=== PATIENT | female | born 1985 | race American Indian/Alaskan Native ===

== ENCOUNTER 2020-04-22 01:11 | Observation (INO) | payer OTHER, SELFPAY ==
[2020-04-22] MEDS ORDERED: LORazepam 2 MG/ML VIAL IV ONE (01:30)
--- NOTE | 2020-04-22 01:40 | Emergency Department Report ---
ED Neuro Deficit HPI - General Chief Complaint: Neuro Symptoms/Deficit Stated Complaint: SHORT OF BREATH, SICKLE CELL CRISIS Time Seen by Provider: 04/22/20 01:24 Source: patient Mode of arrival: Ambulatory Limitations: Physical Limitation - History of Present Illness Initial Comments: [facility] Tele[facility]urology Consult Services Date of Service: 04/22/2020 01:17:13 Impression: Rule Out Acute Ischemic Stroke Comments/Sign-Out: 34 year old female who presents to the hospital because of right side weakness and numbness. Given history of quiñones quiñones and sickle cell crisis and history of recent COVID positive test patient is at risk of new stroke. Mechanism of Stroke: Not Clear Metrics: Last Known Well: 04/22/2020 00:30:00 [employer] Notification Time: 04/22/2020 01:16:56 Arrival Time: 04/22/2020 01:11:00 Stamp Time: 04/22/2020 01:17:13 Time First Login Attempt: 04/22/2020 01:22:23 Video Start Time: 04/22/2020 01:25:03 Symptoms: Right arm weakness and numbness NIHSS Start Assessment Time: 04/22/2020 01:35:00 Patient is not a candidate for Alteplase/Activase. Patient was not deemed candidate for Alteplase/Activase thrombolytics because of Coagulopathy. Video End Time: 04/22/2020 01:40:00 CT head showed no acute hemorrhage or acute core infarct. Clinical Presentation is not Suggestive of Large Vessel Occlusive Disease ED Physician notified of diagnostic impression and management plan on 04/22/2020 01:42:00 Our recommendations are outlined below. Recommendations: Activate Stroke Protocol Admission/Order Set Stroke/Telemetry Floor Neuro Checks Bedside Swallow Eval DVT Prophylaxis IV Fluids, Normal Saline Head of Bed 30 Degrees Euglycemia and Avoid Hyperthermia (PRN Acetaminophen) Antiplatelet Therapy Recommended Routine Consultation with Inhouse Neurology for Follow up Care Sign Out: Discussed with Emergency Department Provider History of Present Illness: Patient is a 34 year old Female. Patient was brought by private transportation with symptoms of Right arm weakness and numbness 34 year old female with a history of quiñones quiñones and sickle cell disease who presents with shortness of breath and right side weakness and numbness. Patient recently tested positive for COVID-19 and today was feeling short of breath and felt she was having a sickling crisis. When she decided to come to the ED she noticed weakness and numbness in her right arm. Patient reports she takes Coumadin, Aspirin, and Plavix and reports her INR was 2.9 yesterday. Anticoagulant use: Coumadin Antiplatelet use: Aspirin and Plavix Examination: BP(115/79), Pulse(82), Blood Glucose(92) 1A: Level of Consciousness - Alert; keenly responsive + 0 1B: Ask Month and Age - Both Questions Right + 0 1C: Blink Eyes & Squeeze Hands - Performs Both Tasks + 0 2: Test Horizontal Extraocular Movements - Normal + 0 3: Test Visual Jansen - No Visual Loss + 0 4: Test Facial Palsy (Use Grimace if Obtunded) - Normal symmetry + 0 5A: Test Left Arm Motor Drift - No Drift for 10 Seconds + 0 5B: Test Right Arm Motor Drift - Drift, but doesn't hit bed + 1 6A: Test Left Leg Motor Drift - No Drift for 5 Seconds + 0 6B: Test Right Leg Motor Drift - No Drift for 5 Seconds + 0 7: Test Limb Ataxia (FNF/Heel-Arthur) - No Ataxia + 0 8: Test Sensation - Complete Loss: Cannot Sense Being Touched At All + 2 9: Test Language/Aphasia - Normal; No aphasia + 0 10: Test Dysarthria - Normal + 0 11: Test Extinction/Inattention - No abnormality + 0 NIHSS Score: 3 Patient/Family was informed the Neurology Consult would happen via TeleHealth consult by way of interactive audio and video telecommunications and consented to receiving care in this manner. Due to the immediate potential for life-threatening deterioration due to underlying acute neurologic illness, I spent 20 minutes providing critical care. This time includes time for face to face visit via telemedicine, review of medical records, imaging studies and discussion of findings with providers, the patient and/or family. Dr Lubna Garibay [facility] Case [id number] - Related Data Allergies/Adverse Reactions: Allergies Allergy/AdvReac Type Severity Reaction Status Date / Time iodine Allergy Anaphylaxis Verified 04/22/20 01:14 ED Review of Systems ROS: Stated complaint: SHORT OF BREATH, SICKLE CELL CRISIS Other details as noted in HPI ED Neuro Physical Exam - General Limitations: Physical Limitation Suspected Stroke: Yes - NIHSS Assessment Interval: Baseline 1a. Level of Consciousness: alert/keenly responsive 1b. LOC Questions: answers both correctly 1c. LOC Commands: performs tasks correctly 2. Best Gaze: normal 3. Visual: no visual loss 4. Facial Palsy: normal symmetrical movement 5b. Motor Arm Right: drift 5a. Motor Arm Left: no drift 6a. Motor Leg Left: no drift 6b. Motor Leg Right: no drift 7. Limb Ataxia: absent 8. Sensory: severe/total sensory loss 9. Best Language: no aphasia 10. Dysarthria: normal 11. Extinction/Inattention: no abnormality Total Score: 3 Stroke Severity: Minor Stroke ED Course Vital Signs 04/22/20 04/22/20 01:17 02:26 Temperature 100.3 F H 100.2 F H Pulse Rate 82 84 Respiratory 18 18 Rate Blood Pressure 115/79 118/71 O2 Sat by Pulse 96 91 Oximetry - Lab Data Result diagrams: 04/22/20 Unknown 04/22/20 Unknown Lab Results 04/22/20 04/22/20 04/22/20 Range/Units Unknown Unknown Unknown WBC 2.9 L (4.5-11.0) K/mm3 RBC 2.45 L (3.65-5.03) M/mm3 Hgb 8.3 L (10.1-14.3) gm/dl Hct 24.6 L (30.3-42.9) % MCV 100 H (79-97) fl MCH 34 H (28-32) pg MCHC 34 (30-34) % RDW 19.6 H (13.2-15.2) % Plt Count 169 (140-440) K/mm3 [place] % (Auto) Plant Cytologist Percent Retic 1.26 (0.78-2.58) % PT 15.8 H (12.2-14.9) Sec. INR 1.24 H (0.87-1.13) APTT 35.1 (24.2-36.6) Sec. Thrombin Time 18.2 (15.1-19.6) Sec. D-Dimer 310.45 H (0-234) ng/mlDDU Glucose (65-100) mg/dL Lactate Dehydrogenase (91-180) units/L C-Reactive Protein (0.00-1.30) mg/dL NT-Pro-B Natriuret Pep 543.9 H (0-450) pg/mL 10/26/20 Range/Units Unknown WBC (4.5-11.0) K/mm3 RBC (3.65-5.03) M/mm3 Hgb (10.1-14.3) gm/dl Hct (30.3-42.9) % MCV (79-97) fl MCH (28-32) pg MCHC (30-34) % RDW (13.2-15.2) % Plt Count (140-440) K/mm3 [place] % (Auto) Percent Retic (0.78-2.58) % PT (12.2-14.9) Sec. INR (0.87-1.13) APTT (24.2-36.6) Sec. Thrombin Time (15.1-19.6) Sec. D-Dimer (0-234) ng/mlDDU Glucose 92 (65-100) mg/dL Lactate Dehydrogenase 309 H (91-180) units/L C-Reactive Protein 2.10 H (0.00-1.30) mg/dL NT-Pro-B Natriuret Pep (0-450) pg/mL Critical care attestation.: If time is entered above; I have spent that time in minutes in the direct care of this critically ill patient, excluding procedure time. ED Disposition Clinical Impression: Weakness Disposition: DC OP ADMIT IP TO THIS HOSP Is pt being admited?: Yes Condition: Stable
--- NOTE | 2020-04-22 01:55 | Cat Scan Report ---
CT HEAD WITHOUT CONTRAST INDICATION / CLINICAL INFORMATION: neuro deficits <6hrs or sx present upon awakening. 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 TECHNIQUE: All CT scans at this location are performed using CT dose reduction for ALARA by means of automated exposure control. COMPARISON: None available. FINDINGS: HEMORRHAGE: None. EXTRA-AXIAL SPACES: Normal in size and morphology for the patient's age. VENTRICULAR SYSTEM: Normal in size and morphology for the patient's age. CEREBRAL PARENCHYMA: No significant abnormality. No acute territorial infarct. MIDLINE SHIFT OR HERNIATION: None. CEREBELLUM / BRAINSTEM: No significant abnormality. ORBITS: Normal as visualized. SOFT TISSUES of HEAD: No significant abnormality. CALVARIUM: No significant abnormality. PARANASAL SINUSES / MASTOID AIR CELLS: Normal as visualized. ADDITIONAL FINDINGS: None. IMPRESSION: 1. No acute intracranial abnormality. CODE STROKE: Time of Communication (METAL FITTER/CDT): 12:50 AM Licensed Practitioner Receiving Report: Dr. Lucas in the ED Signer Name: Nataliia Orozco MD Signed: 04/22/2020 1:50 AM Workstation Name: [id number]
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
[2020-04-22] MEDS ORDERED: HYDROmorphone 1 MG/1 ML INJ IV ONE (02:00)
[2020-04-22 02:29] LABS: Hematocrit 24.6 % (30.3-42.9); Hemoglobin 8.3 gm/dl (10.1-14.3); Mean Corpuscular HGB Conc 34 % (30-34); Mean Corpuscular Volume 100 fl (79-97); Platelet Count 169 K/mm3 (140-440); Red Blood Count 2.45 M/mm3 (3.65-5.03); Red Cell Distribution Width 19.6 % (13.2-15.2)
[2020-04-22 02:40] LABS: INR 1.24 (0.87-1.13)
--- NOTE | 2020-04-22 02:40 | XRay Report ---
CHEST 1 VIEW 04/22/2020 2:08 AM INDICATION / CLINICAL INFORMATION: chest pain, sob. Right-sided weakness. Cell disease. Covid positiv e. COMPARISON: None available. FINDINGS: SUPPORT DEVICES: Right Port-A-Cath tip projecting over the superior vena cava. HEART / MEDIASTINUM: No significant abnormality. LUNGS / PLEURA: Low lung volumes with mild bibasilar atelectasis. No pneumothorax. ADDITIONAL FINDINGS: No significant additional findings. IMPRESSION: 1. Low lung volumes with mild bibasilar atelectasis. Signer Name: Nataliia Orozco MD Signed: 04/22/2020 2:36 AM Workstation Name: [id number]
[2020-04-22 02:41] LABS: Partial Thromboplastin Time 35.1 Sec. (24.2-36.6)
[2020-04-22 02:42] LABS: Thrombin Time 18.2 Sec. (15.1-19.6)
[2020-04-22 02:45] LABS: C-Reactive Protein 2.1 mg/dL (0.00-1.30)
[2020-04-22 02:47] LABS: Blood Urea Nitrogen 8 mg/dL (7-17); Calcium 8.3 mg/dL (8.4-10.2); Hemolysis Index 2
[2020-04-22 02:50] LABS: BUN/Creatinine Ratio 20
[2020-04-22] MEDS ORDERED: ACETAMINOPHEN 500 MG TAB PO ONE (03:09)
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
[2020-04-22] MEDS ORDERED: SODIUM CHLORIDE 0.9% 1000 ML 1,000 ML IV SCH (04:15)
[2020-04-22 05:00] LABS: Anisocytosis 1+; Basophils % (Manual) 0 % (0.0-1.8); Eosinophils % (Manual) 0 % (0.0-4.3); Hypochromasia 1+; Monocytes % (Manual) 0 % (0.0-7.3); Platelet Estimate Consistent w Auto; Target Cells Few; Total Cells Counted 100
[2020-04-22 05:29] LABS: Alanine Aminotransferase 201 units/L (7-56); Albumin 3.3 g/dL (3.9-5); BUN/Creatinine Ratio 20; Blood Urea Nitrogen 8 mg/dL (7-17); Chol/HDL Ratio 1.68 %; HDL Cholesterol 48 mg/dL (40-59); Hemolysis Index 1; LDL Cholesterol,Direct 14 mg/dL (50-130)
[2020-04-22] MEDS ORDERED: MAGNESIUM HYDROXIDE (MOM) ORAL LIQD UDC PO PRN (09:16)
[2020-04-22] MEDS ORDERED: ONDANSETRON 4 MG/2 ML INJ IV PRN (09:16)
[2020-04-22] MEDS ORDERED: diphenhydrAMINE 50 MG CAP PO PRN ×2 (09:23→10:00)
[2020-04-22] MEDS ORDERED: diphenhydrAMINE 25 MG CAP PO PRN (09:27)
[2020-04-22] MEDS: HYDROmorphone 2 MG/1 ML INJ IV PRN ×7 (09:30→21:39)
[2020-04-22] MEDS ORDERED: IBUPROFEN 400 MG TAB PO PRN (09:39)
[2020-04-22] MEDS: ASPIRIN 325 MG TAB PO SCH (09:57)
[2020-04-22] MEDS: FERROUS SULFATE 325 MG TAB PO SCH (09:57)
[2020-04-22] MEDS: CLOPIDOGREL 75 MG TAB PO SCH (09:57)
[2020-04-22] MEDS: MULTIVITAMINS ,THERAPEUTIC TAB PO SCH (09:57)
[2020-04-22] MEDS: ASCORBIC ACID 500 MG TAB PO SCH ×2 (09:57→21:39)
[2020-04-22] MEDS: FOLIC ACID 1 MG TAB PO SCH (09:57)
[2020-04-22] MEDS ORDERED: AZITHROMYCIN 500 MG in SODIUM CHLORIDE 0.9% 250ML 250 ML IV SCH (10:00)
[2020-04-22] MEDS ORDERED: POTASSIUM CHLORIDE ER 20 MEQ TAB PO SCH (10:00)
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
--- NOTE | 2020-04-22 12:33 | Vascular Lab Report ---
DUPLEX DOPPLER LOWER EXTREMITY VEINS, BILATERAL INDICATION / CLINICAL INFORMATION: Bilateral lower extremity pain. TECHNIQUE: Duplex doppler imaging was performed through the veins of both lower extremities using venous lauri robert and other maneuvers. COMPARISON: None available. FINDINGS: RIGHT COMMON FEMORAL VEIN: Negative. RIGHT FEMORAL VEIN: Negative. RIGHT POPLITEAL VEIN: Negative. RIGHT CALF VEINS: Negative. LEFT COMMON FEMORAL VEIN: Negative. LEFT FEMORAL VEIN: Negative. LEFT POPLITEAL VEIN: Negative. LEFT CALF VEINS: Negative. ADDITIONAL FINDINGS: None. IMPRESSION: 1. No sonographic evidence for DVT in either lower extremity. Signer Name: Ga Monzon MD Signed: 04/22/2020 12:28 PM Workstation Name: [id number]
[2020-04-22] MEDS: dexAMETHasone 4 MG/ML VIAL IV SCH ×2 (12:54→21:39)
[2020-04-22] MEDS ORDERED: SODIUM CHLORIDE 0.9% 50 ML IVPB IV SCH (13:00)
[2020-04-22] MEDS ORDERED: REMDESIVIR 100 MG VIAL IV ONE (14:00)
[2020-04-22] MEDS ORDERED: HEPARIN 5,000 UNIT/1 ML VIAL SUB-Q SCH (14:00)
[2020-04-22] MEDS ORDERED: REMDESIVIR 200 MG in SODIUM CHLORIDE 0.9% 250ML 250 ML IV ONE (14:00)
--- NOTE | 2020-04-22 16:22 | Event Note ---
This is a 34-year-old female with sickle cell disease, CHF, morbid obesity, CHF CAD s/p 6 stents, lymphoma and moyamoya who presented to the ED on 04/22 with a complaint of sickle cell crisis and right-sided numbness. Patient tested positive for COVID-19 2 days prior to admission. Patient states that on 04/21 she began having chest pain and bilateral hip pain which is consistent with her usual sickle cell crisis and approximately 30 minutes prior to arrival patient began to have numbness and tingling in her right arm and leg. Patient reported to have diarrhea, loss of smell and taste prior to admission. Upon arrival to the ED she was febrile 100.3, leukopenic at 2.9, D-dimer 310, hypokalemic at 2.5, hyponatremia 133, slightly acidotic at CO2 32 and elevated AST and ALT at 163/201. Upon arrival her BNP was 537, CRP 2.[address] head was unremarkable. Infectious disease and pulmonology were consulted. On 04/22 she was initiated on Decadron twice daily till 05/01 and remdesivir (04/22 through 04/26). Today she was febrile and was given as needed Motrin given her elevated LFTs. Patient was started on 50 mg Benadryl p.o. per her request and started on 2 mg IV Dilaudid as needed every 2 hours per protocol for 24 hours. At the time of my exam patient is on Ventimask at 30% related to continued shortness of breath placed by RT. Pulmonology consult still pending. We will trend her BMP and treat as appropriate. On 04/22 given her elevated D-dimer bilateral lower extremity Doppler ultrasounds were obtained which were negative for any acute DVT or SVT. Also PT and OT were consulted.
[2020-04-22] MEDS ORDERED: SENNOSIDES 8.6 MG TAB PO SCH (22:00)
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
[2020-04-22] MEDS: HEPARIN 5,000 UNIT/1 ML VIAL SUB-Q SCH (22:59)
[2020-04-23] MEDS ORDERED: CLOPIDOGREL 75 MG TAB ONE (00:02)
[2020-04-23] MEDS ORDERED: DEXAMETHASONE 4 MG TAB ONE (00:02)
[2020-04-23] MEDS ORDERED: ASPIRIN 325 MG TAB ONE (00:02)
[2020-04-23] MEDS ORDERED: FERROUS SULFATE 325 MG TAB PO ONE (00:02)
[2020-04-23] MEDS ORDERED: MULTIVITAMINS ,THERAPEUTIC TAB PO ONE (00:02)
[2020-04-23] MEDS ORDERED: FOLIC ACID 1 MG TAB ONE (00:02)
[2020-04-23] MEDS ORDERED: HYDROmorphone 2 MG/1 ML INJ ONE ×8 (00:02→18:30)
[2020-04-23] MEDS ORDERED: ASCORBIC ACID 500 MG TAB ONE (00:02)
[2020-04-23] MEDS ORDERED: HYDROmorphone 1 MG/1 ML INJ ONE (02:30)
[2020-04-23] MEDS ORDERED: HEPARIN 5,000 UNIT/1 ML VIAL ONE (05:30)
[2020-04-23] MEDS: HEPARIN 5,000 UNIT/1 ML VIAL SUB-Q SCH ×2 (06:00→14:43)
[2020-04-23] MEDS ORDERED: DEXAMETHASONE 4 MG TAB PO SCH (10:00)
[2020-04-23] MEDS: FOLIC ACID 1 MG TAB PO SCH (10:00)
[2020-04-23] MEDS: FERROUS SULFATE 325 MG TAB PO SCH (10:00)
[2020-04-23] MEDS: ASPIRIN 325 MG TAB PO SCH (10:43)
[2020-04-23] MEDS: CLOPIDOGREL 75 MG TAB PO SCH (10:45)
[2020-04-23] MEDS: MULTIVITAMINS ,THERAPEUTIC TAB PO SCH (10:46)
[2020-04-23] MEDS: ASCORBIC ACID 500 MG TAB PO SCH (10:46)
--- NOTE | 2020-04-23 18:17 | Progress Note ---
Assessment and Plan - Patient Problems (1) Severe sepsis Current Visit: Yes Status: Acute Plan to address problem: - Presented with fever, tachycardia, leukopenia, hypotension with COVID 19 PNA - 04/22 CXR with bibasilar atelectasis - 04/22 COVID 19 PCR (+) - 04/22 BDx2 pending - 04/22 CRP normal, IV abx DC - ID following (2) Pneumonia due to COVID-19 virus Current Visit: Yes Status: Acute Plan to address problem: - 04/22 CXR with bibasiliar atelectatsis - 04/22 COVID 19 PCR (+) - Pulmonary hygiene - 04/22-04/27 remdesivir - 04/22 abx DC per ID - Pulm consulted - ID consulted - Prone to sleep - OOB TID and PRN - Supplemental oxygenation as needed - Pre/Post ambulation spo2 - 04/22 Dexamethasone BID till 04/29 - Trend COVID markers, LFT, CBC - SARS-Chio 2 IgG pending for possible convalescent plasma - Anticougulation per protocol (3) Acute respiratory failure with hypoxia Current Visit: Yes Status: Acute Plan to address problem: - Supplemental oxygenation as needed - Pulmonary hygiene - Pulmonary consult (4) Sickle cell crisis Current Visit: Yes Status: Acute Plan to address problem: - Presented with lower back, leg and chest pain with arm numbness - IVF ordered for hydration but DC per pulm in setting of COVID with worsening hypoxia - IV anageliscs - Restarted home analgesic once obtained if appropriate - IV Dilaudid per [facility]SC protocol - Trend CBC, retic, LDH (5) Transaminitis Current Visit: Yes Status: Acute Plan to address problem: - Likely secondary to COVID - Trend LFTS - hold statin (6) Leukopenia Current Visit: Yes Status: Acute Qualifiers: Neutropenia type: due to infection Plan to address problem: - Admit WBC 2.9 - Trend CBC (7) Elevated d-dimer Current Visit: Yes Status: Acute Plan to address problem: - 2/2 COVID - 04/22 BLE venous dopplers (-) for DVT (8) Sickle cell anemia Current Visit: Yes Status: Chronic Qualifiers: Sickle-cell associated disorders: with crisis with other complication Qualified Code(s): D57.09 - Hb-SS disease with crisis with other specified complication Plan to address problem: - Admit H/H 8.3/24.6 - Trend CBC - Transfuse if hbg <7 - FE, folic and multivitamin (9) History of non-Hodgkin's lymphoma Current Visit: Yes Status: Chronic Plan to address problem: -supportive care (10) Morbid obesity due to excess calories Current Visit: Yes Status: Chronic Plan to address problem: - Encourage lifestyle modifications for wt loss - Consider bariatirc surgery op - Wt loss counseling provided (11) CAD (coronary artery disease) Current Visit: No Status: Chronic Plan to address problem: -Hold statin in setting of transaminitis 2/2 COVID - ASA and plavix resumed (12) Hx of congestive heart failure Current Visit: No Status: Chronic Plan to address problem: -04/22 TTE pending -Supportive care (13) Hyponatremia Current Visit: Yes Status: Acute Plan to address problem: - Presented with Na of 133 - Trend MBP - s/p IVF (14) Hypokalemia Current Visit: Yes Status: Acute Plan to address problem: - Presented with K 3.5 - Repelted - Trend BMP - Replete as neede (15) Hypochloremic alkalosis Current Visit: Yes Status: Acute Plan to address problem: -Admit Cl 92, CO2 32 - s/p IVF - Trend BMP - 2/2 SSC and COVID (16) DVT prophylaxis Current Visit: Yes Status: Acute Plan to address problem: - SCDS to Bilateral [facility] bed - subq heparin History Interval history: This is a 34-year-old female with sickle cell disease, CHF, morbid obesity, CHF CAD s/p 6 stents, lymphoma and moyamoya who presented to the ED on 04/22 with a complaint of sickle cell crisis and right-sided numbness. Patient tested positive for COVID-19 2 days prior to admission. Patient states that on 04/21 she began having chest pain and bilateral hip pain which is consistent with her usual sickle cell crisis and approximately 30 minutes prior to arrival patient began to have numbness and tingling in her right arm and leg. Upon arrival to the ED she was febrile 100.3, leukopenic at 2.9, D-dimer 310, hypokalemic at 2.5, hyponatremia 133, hypochloremic alkalosis at CO2 32 and elevated AST and ALT at 163/201. Upon arrival her BNP was 537, CRP 2.[address] head was unremarkable. Infectious disease and pulmonology were consulted. ID initiated Remdisivir, Patient was on 40% VM at the time of my exam. She states she wants her IV Dilaudid to continue and does not want her home medication of MS contin to be restarted since "this is working". Patient later seemed upset. Per the RN she wanted to leave AMA this AM. -04/22 she was initiated on Decadron twice daily till 05/01 and remdesivir (04/22 through 04/26). Started on prn Motrin given her elevated LFTs, 50 mg Benadryl p.o. per her request and started on 2 mg IV Dilaudid as needed every 2 hours per protocol for 24 hours. Bilateral lower extremity Doppler ultrasounds were obtained which were negative for any acute DVT or SVT. Also PT and OT consulted. TTE ordered, stopped ABX per ID . Hospitalist Physical - Constitutional Vitals: Temp Pulse Resp BP Pulse Ox 98.3 F 58 L 22 106/68 88 04/22/20 22:44 04/22/20 22:44 04/22/20 22:44 04/22/20 22:44 04/22/20 22:44 General appearance: Present: no acute distress, obese - EENT Eyes: Present: PERRL, EOM intact ENT: hearing intact, clear oral mucosa, dentition normal - Neck Neck: Present: supple, normal ROM - Respiratory Respiratory effort: normal Respiratory: bilateral: diminished - Cardiovascular Rhythm: regular Heart Sounds: Present: S1 & S2. Absent: systolic murmur, diastolic murmur - Extremities Extremities: no ischemia, pulses intact, pulses symmetrical, No edema, normal temperature, normal color, Full ROM Peripheral Pulses: within normal limits - Abdominal General gastrointestinal: soft, non-tender, non-distended, normal bowel sounds - Integumentary Integumentary: Present: clear, warm, dry - Psychiatric Psychiatric: agitated - Neurologic Neurologic: CNII-XII intact, no focal deficits, moves all extremities HEART Score - HEART Score Troponin: Troponin T < 0.010 ng/mL (0.00-0.029) 04/22/20 Unknown Results - Labs CBC & Chem 7: 04/22/20 Unknown 04/22/20 Unknown Labs: Laboratory Last Values WBC 2.9 K/mm3 (4.5-11.0) L 04/22/20 Unknown RBC 2.45 M/mm3 (3.65-5.03) L 04/22/20 Unknown Hgb 8.3 gm/dl (10.1-14.3) L 04/22/20 Unknown Hct 24.6 % (30.3-42.9) L 04/22/20 Unknown MCV 100 fl (79-97) H 04/22/20 Unknown MCH 34 pg (28-32) H 04/22/20 Unknown MCHC 34 % (30-34) 04/22/20 Unknown RDW 19.6 % (13.2-15.2) H 04/22/20 Unknown Plt Count 169 K/mm3 (140-440) 04/22/20 Unknown [place] % (Auto) Child Care Team Lead 04/22/20 Unknown Add Manual Diff Complete 04/22/20 Unknown Total Counted 100 04/22/20 Unknown Seg Neuts % (Manual) 68.0 % (40.0-70.0) 04/22/20 Unknown Band Neutrophils % 0 % 04/22/20 Unknown Lymphocytes % (Manual) 32.0 % (13.4-35.0) 04/22/20 Unknown Reactive Lymphs % (Man) 0 % 04/22/20 Unknown Monocytes % (Manual) 0 % (0.0-7.3) 04/22/20 Unknown Eosinophils % (Manual) 0 % (0.0-4.3) 04/22/20 Unknown Basophils % (Manual) 0 % (0.0-1.8) 04/22/20 Unknown Metamyelocytes % 0 % 04/22/20 Unknown Myelocytes % 0 % 04/22/20 Unknown Promyelocytes % 0 % 04/22/20 Unknown Blast Cells % 0 % 04/22/20 Unknown Nucleated RBC % Not Reportable 04/22/20 Unknown Seg Neutrophils # Man 2.0 K/mm3 (1.8-7.7) 04/22/20 Unknown Band Neutrophils # 0.0 K/mm3 04/22/20 Unknown Lymphocytes # (Manual) 0.9 K/mm3 (1.2-5.4) L 04/22/20 Unknown Abs React Lymphs (Man) 0.0 K/mm3 04/22/20 Unknown Monocytes # (Manual) 0.0 K/mm3 (0.0-0.8) 04/22/20 Unknown Eosinophils # (Manual) 0.0 K/mm3 (0.0-0.4) 04/22/20 Unknown Basophils # (Manual) 0.0 K/mm3 (0.0-0.1) 04/22/20 Unknown Metamyelocytes # 0.0 K/mm3 04/22/20 Unknown Myelocytes # 0.0 K/mm3 04/22/20 Unknown Promyelocytes # 0.0 K/mm3 04/22/20 Unknown Blast Cells # 0.0 K/mm3 04/22/20 Unknown WBC Morphology Not Reportable 04/22/20 Unknown Hypersegmented Neuts Not Reportable 04/22/20 Unknown Hyposegmented Neuts Not Reportable 04/22/20 Unknown Hypogranular Neuts Not Reportable 04/22/20 Unknown Smudge Cells Not Reportable 04/22/20 Unknown Toxic Granulation Not Reportable 04/22/20 Unknown Toxic Vacuolation Not Reportable 04/22/20 Unknown Dohle Bodies Not Reportable 04/22/20 Unknown Pelger-Huet Anomaly Not Reportable 04/22/20 Unknown Mariama Rods Not Reportable 04/22/20 Unknown Platelet Estimate Consistent w auto 04/22/20 Unknown Clumped Platelets Not Reportable 04/22/20 Unknown Plt Clumps, EDTA Not Reportable 04/22/20 Unknown Large Platelets Not Reportable 04/22/20 Unknown Giant Platelets Not Reportable 04/22/20 Unknown Platelet Satelliting Not Reportable 04/22/20 Unknown Plt Morphology Comment Not Reportable 04/22/20 Unknown RBC Morphology Not Reportable 04/22/20 Unknown Dimorphic RBCs Not Reportable 04/22/20 Unknown Polychromasia Not Reportable 04/22/20 Unknown Hypochromasia 1+ 04/22/20 Unknown Poikilocytosis Not Reportable 04/22/20 Unknown Anisocytosis 1+ 04/22/20 Unknown Microcytosis Not Reportable 04/22/20 Unknown Macrocytosis Not Reportable 04/22/20 Unknown Spherocytes Not Reportable 04/22/20 Unknown Pappenheimer Bodies Not Reportable 04/22/20 Unknown Sickle Cells Not Reportable 04/22/20 Unknown Target Cells Few 04/22/20 Unknown Tear Drop Cells Not Reportable 04/22/20 Unknown Ovalocytes Not Reportable 04/22/20 Unknown Helmet Cells Not Reportable 04/22/20 Unknown Man-[place] Bodies Not Reportable 04/22/20 Unknown [place] Rings Not Reportable 04/22/20 Unknown Anuj Cells Not Reportable 04/22/20 Unknown Bite Cells Not Reportable 04/22/20 Unknown Crenated Cell Not Reportable 04/22/20 Unknown Elliptocytes Not Reportable 04/22/20 Unknown Acanthocytes (Spur) Not Reportable 04/22/20 Unknown Rouleaux Not Reportable 04/22/20 Unknown Hemoglobin C Crystals Not Reportable 04/22/20 Unknown Schistocytes Not Reportable 04/22/20 Unknown Malaria parasites Not Reportable 04/22/20 Unknown Percent Retic 1.26 % (0.78-2.58) 04/22/20 Unknown Will Bodies Not Reportable 04/22/20 Unknown Hem Pathologist Commnt No 04/22/20 Unknown PT 15.8 Sec. (12.2-14.9) H 04/22/20 Unknown INR 1.24 (0.87-1.13) H 04/22/20 Unknown APTT 35.1 Sec. (24.2-36.6) 04/22/20 Unknown Thrombin Time 18.2 Sec. (15.1-19.6) 04/22/20 Unknown D-Dimer 310.45 ng/mlDDU (0-234) H 04/22/20 Unknown Sodium 133 mmol/L (137-145) L 04/22/20 Unknown Potassium 3.5 mmol/L (3.6-5.0) L 04/22/20 Unknown Chloride 92.0 mmol/L (98-107) L 04/22/20 Unknown Carbon Dioxide 32 mmol/L (22-30) H 04/22/20 Unknown Anion Gap 13 mmol/L 04/22/20 Unknown BUN 8 mg/dL (7-17) 04/22/20 Unknown Creatinine 0.4 mg/dL (0.6-1.2) L 04/22/20 Unknown Estimated GFR > 60 ml/min 04/22/20 Unknown BUN/Creatinine Ratio 20 % 04/22/20 Unknown Glucose 92 mg/dL (65-100) 04/22/20 Unknown Glucose 93 mg/dL (65-100) 04/22/20 Unknown POC Glucose 93 mg/dL (70-105) 04/22/20 01:31 Calcium 8.3 mg/dL (8.4-10.2) L 04/22/20 Unknown Ferritin 108.1 ng/mL (10.0-200.0) 04/22/20 Unknown Total Bilirubin 0.30 mg/dL (0.1-1.2) 04/22/20 04:56 AST 163 units/L (5-40) H 04/22/20 04:56 ALT 201 units/L (7-56) H 04/22/20 04:56 Alkaline Phosphatase 555 units/L (35-129) H 04/22/20 04:56 Lactate Dehydrogenase 309 units/L (91-180) H 04/22/20 Unknown Troponin T < 0.010 ng/mL (0.00-0.029) 04/22/20 Unknown C-Reactive Protein 2.10 mg/dL (0.00-1.30) H 04/22/20 Unknown NT-Pro-B Natriuret Pep 543.9 pg/mL (0-450) H 04/22/20 Unknown Total Protein 6.4 g/dL (6.3-8.2) 04/22/20 04:56 Albumin 3.3 g/dL (3.9-5) L 04/22/20 04:56 Albumin/Globulin Ratio 1.1 % 04/22/20 04:56 Triglycerides 88 mg/dL (2-149) 04/22/20 04:56 Cholesterol 81 mg/dL (50-199) 04/22/20 04:56 LDL Cholesterol Direct 14 mg/dL (50-130) L 04/22/20 04:56 HDL Cholesterol 48 mg/dL (40-59) 04/22/20 04:56 Cholesterol/HDL Ratio 1.68 % 04/22/20 04:56 Procalcitonin 0.07 ng/mL (<0.15) 04/22/20 Unknown Coronavirus (PCR) Positive (Negative) A 04/22/20 Unknown Microbiology: Microbiology 04/22/20 Unknown Peripheral/Venous Blood Culture - Preliminary Culture in Progress 04/22/20 Unknown Peripheral/Venous Blood Culture - Preliminary Culture in Progress Jenkins/IV: Voiding Method Bedside Commode Active Medications - Current Medications Current Medications: Generic Name Dose Route Start Last Admin Trade Name Freq PRN Reason Stop Dose Admin Ascorbic Acid 500 mg 04/22/20 10:00 04/22/20 21:39 Vitamin C PO 500 mg BID MOSES Administration Aspirin 325 mg 04/22/20 10:00 04/22/20 09:57 Aspirin PO 325 mg QDAY MOSES Administration Atorvastatin Calcium 20 mg 04/22/20 22:00 04/22/20 21:39 Lipitor PO 20 mg QHS MOSES Administration Bisacodyl 10 mg 04/22/20 09:16 Dulcolax ID QDAY PRN Constipation unrelieved by MOM Clopidogrel Bisulfate 75 mg 04/22/20 10:00 04/22/20 09:57 Plavix PO 75 mg QDAY [facility] Administration Dexamethasone 6 mg 04/22/20 13:00 04/22/20 21:39 Decadron IV 04/22/20 23:59 6 mg BID MOSES Administration Dexamethasone 6 mg 04/23/20 10:00 Decadron PO 05/01/20 22:01 BID [facility] Diphenhydramine HCl 50 mg 04/22/20 10:00 Benadryl PO Q6H PRN Itching Ferrous Sulfate 325 mg 04/22/20 10:00 04/22/20 09:57 Feosol PO 325 mg QDAY [facility] Administration Folic Acid 1 mg 04/22/20 10:00 04/22/20 09:57 Folvite PO 1 mg QDAY [facility] Administration Heparin Sodium (Porcine) 5,000 unit 04/22/20 22:30 04/22/20 22:59 Heparin SUB-Q 5,000 unit Q8HR [facility] Administration Hydromorphone HCl 2 mg 04/22/20 09:16 04/22/20 21:39 Dilaudid IV 04/23/20 09:15 2 mg Q2H PRN Administration Pain , Severe (7-10) REMDESIVIR 100 mg/ Sodium 250 mls @ 500 mls/hr 04/23/20 21:00 Chloride IV 04/26/20 21:29 Q24HR@2100 [facility] Ibuprofen 400 mg 04/22/20 09:39 04/22/20 09:57 Ibuprofen PO 400 mg Q6H PRN Administration Fever >101 Magnesium Hydroxide 30 ml 04/22/20 09:16 Milk Of Magnesia PO Q4H PRN Constipation Multivitamins 1 each 04/22/20 10:00 04/22/20 09:57 Theragran Tab PO 1 each QDAY MOSES Administration Ondansetron HCl 4 mg 04/22/20 09:16 04/22/20 11:56 Zofran IV 4 mg Q8H PRN Administration Nausea And Vomiting Senna 17.2 mg 04/22/20 22:00 04/22/20 21:39 Senokot PO 17.2 mg QHS MOSES Administration Sodium Chloride 50 ml 04/22/20 13:00 04/22/20 14:11 Nacl 0.9% IV 04/26/20 21:01 50 ml Q24HR@2100 MOSES Administration
[2020-04-23 19:01] VITALS: BP 119/69
--- NOTE | 2020-04-23 20:43 | Progress Note ---
Assessment and Plan Cultures: Blood culture no growth today SARS CoV2 PCR positive as an outpatient Assessment: 34 years old female with history of sickle cell disease, morbid obesity, CHF, CAD status post 6 stents, lymphoma status post chemotherapy, admitted on 04/22/2020 due to 24-hour history of bilateral hip and chest pain associated with generalized malaise, loss of smell and taste, patient tested positive for COVID-19 2 days before admission: #Severe sepsis : likely due to bilateral pneumonia. #Sepsis: Present on admission with fever, hypotension, likely secondary to COVID-19 pneumonia. Procalcitonin is normal. #Likely severe COVID pneumonia: Chest x-ray shows bibasilar atelectasis. Markers are slightly elevated. #Acute hypoxemic respiratory failure: Patient sats down to 91% initially on 3 L nasal cannula, now on a Ventimask 30% #Elevated LFTs: from COVID #Morbid obesity: BMI 70 #Neutropenia: Secondary to Covid. #Sickle cell disease with crisis. Recommendations: -Pulmonary on board -F/u blood cultures -Obtain transthoracic echo - pending -Continue Dexamethasone 6 mg IV/PO twice daily -BMI 70 -Continue Remdesivir day 2 of 5 -Monitor inflammatory markers - ferritin, Ddimer, CRP, LDH -Monitor liver function test on Remdesivir -Continue anticoagulation per System Protocol -Prone positioning as possible -Obtain SARS CoV-2 IgG to determine if patient is a candidate for COVID convalescent plasma All laboratory, cultures and imaging were reviewed. Patient is at high risk for deterioration including intubation/close monitoring Will follow Nichol Graf MD Infectious Diseases Chart Writer [facility], [place], [facility] [phone] Subjective Date of service: 04/23/20 Principal diagnosis: COVID Interval history: Feels better, reporting multiple body aches, asking for pain med, no fever Objective - Exam Narrative Exam: Physical Exam: reviewed ED and hospitalist notes, limited due to conservation of PPE and decrease risk of transmission. General appearance: limited due to conservation of PPE Eyes: limited due to conservation of PPE HENT: Atraumatic; limited due to conservation of PPE Lungs: limited due to conservation of PPE CV: limited due to conservation of PPE Abdomen: limited due to conservation of PPE Extremities: limited due to conservation of PPE Skin: limited due to conservation of PPE Psych: limited due to conservation of PPE Neuro: limited due to conservation of PPE - - Constitutional Vitals: Vital Signs Temp Pulse Resp BP Pulse Ox 98.2 F 54 L 20 119/69 92 04/23/20 18:23 04/23/20 18:23 04/23/20 18:23 04/23/20 18:23 04/23/20 18:23 Temperature -Last 24 Hours Temperature 98.2 F Temperature 98.5 F Temperature 98.1 F Temperature 98.3 F - Labs CBC & Chem 7: 04/22/20 Unknown 04/22/20 Unknown
[2020-04-23] MEDS ORDERED: REMDESIVIR 100 MG in SODIUM CHLORIDE 0.9% 250ML 250 ML IV SCH (21:00)
[2020-04-23] MEDS ORDERED: SODIUM CHLORIDE 0.9% 1000 ML 1,000 ML IV ONE (21:22)
[2020-04-23] MEDS ORDERED: MORPHINE 15 MG ER TAB PO SCH (22:00)
--- NOTE | 2020-04-24 03:15 | Physician Progress Note ---
TIME: 12:20. SUBJECTIVE: The patient is awake and responsive, still short of breath, not wearing O2. OBJECTIVE: VITAL SIGNS: 130/70, 76, 20. LUNGS: Distant. CARDIOVASCULAR: Normal S1, S2. ABDOMEN: Positive bowel sounds, soft, nontender, obese. GENERAL: Obese -[place] female, sitting up in bed without O2 (the patient encouraged to put O2 on during visit, O2 placed on the patient). ASSESSMENT AND PLAN: COVID-19 infection, acute respiratory failure with hypoxia; lymphoma, on chemo; lupus; morbid obesity. Continue Decadron. Monitor respiratory status closely. The patient is encouraged to wear supplemental oxygen, encouraged improved compliance with O2. The patient is also encouraged proning. The patient reports that because of her weight she cannot lie on her stomach. The patient is encouraged to do this regardless of her weight and improvement to improve area of her treatment. This was explained to the patient. Continue treatment as per ID, supportive care. JOB# [id number] CORBIN/ANA MARQUEZ
== END 2020-04-23 08:30 | disposition left against medical advice (07) ==
LOC: ED 01:11 → 3A 04:32
PROVIDERS: ADMIT Internal Medicine; ATTEND Internal Medicine
DX: U07.1 COVID-19 (principal); J96.01 Acute respiratory failure with hypoxia; R65.20 Severe sepsis without septic shock; J12.89 Other viral pneumonia; I11.0 Hypertensive heart disease with heart failure; I50.9 Heart failure, unspecified; I25.10 Atherosclerotic heart disease of native coronary artery without angina pectoris; D57.00 Hb-SS disease with crisis, unspecified; C85.90 Non-Hodgkin lymphoma, unspecified, unspecified site; D64.9 Anemia, unspecified; E66.01 Morbid (severe) obesity due to excess calories; R53.1 Weakness; R79.89 Other specified abnormal findings of blood chemistry; R74.8 Abnormal levels of other serum enzymes; D70.9 Neutropenia, unspecified; R74.01 Elevation of levels of liver transaminase levels; E87.1 Hypo-osmolality and hyponatremia; E87.6 Hypokalemia; E87.8 Other disorders of electrolyte and fluid balance, not elsewhere classified; Z79.01 Long term (current) use of anticoagulants; Z79.02 Long term (current) use of antithrombotics/antiplatelets; Z79.82 Long term (current) use of aspirin; Z68.45 Body mass index [BMI] 70 or greater, adult; Z79.899 Other long term (current) drug therapy
CPT/HCPCS: 36415; 70450; 71045; 80053; 80061; 82728; 82947; 82962; 83615; 83880; 84145; 84484; 85025; 85045; 85379; 85610; 85670; 85730; 86140; 87040; 87076; 87186; 92610; 93005; 93970; 94760; 96361; 96365; 96367; 96372; 96375; 96376; 97166; 99285; A9270; G0378; J0456; J1100; J1170; J1644; J2405; J7030; J7050; J8540; U0003; 80048; 85007